=== PATIENT | female | born 2005 | race Caucasian/White ===

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

== ENCOUNTER → 2023-05-14 | Outpatient (REF) | payer OTHER | LOC: M LAB REF 19:45 | PROVIDERS: ATTEND Student in an Organized Health Care Education/Training Program | DX: R30.0 Dysuria (principal) ==

== ENCOUNTER → 2023-09-22 | Outpatient (REF) | payer OTHER ==
[2023-09-22 21:52] LABS: Trichomonas vaginalis (AMP) NOT DETECTED (NEGATIVE)
[2023-09-22 22:15] LABS: GC DNA AMPLIFICATION NEGATIVE (NEGATIVE)
== END ==
LOC: M LAB REF 20:16
PROVIDERS: ATTEND Physician Assistant
DX: R30.0 Dysuria (principal)

== ENCOUNTER → 2023-11-11 | Outpatient (REF) | payer OTHER ==
[~2023-11-11] MED LIST changes: +FLUO-365 PO; -FLUO20CA22 PO
[2023-11-11 21:44] LABS: APPEARANCE, URINE HAZY (CLEAR); BACTERIA, URINE AUTO 1+ (NEGATIVE); BILIRUBIN, URINE AUTO NEGATIVE (NEGATIVE); BLOOD, URINE BLOOD 1+ (NEGATIVE); COLOR, URINE YELLOW (YELLOW); GLUCOSE, URINE (UA) AUTO NEGATIVE (NEGATIVE); KETONE, URINE AUTO NEGATIVE (NEGATIVE); LEUKOCYTE ESTERASE, URINE AUTO 1+ (NEGATIVE); MUCUS, URINE SMALL (NEGATIVE); NITRITE, URINE AUTO NEGATIVE (NEGATIVE); PROTEIN, URINE AUTO 1+ mg/dL (NEGATIVE); RBC, URINE AUTO 5 /HPF (0-3); RENAL EPITHELIAL CELLS 1 /HPF; SQUAMOUS EPITHELIAL CELL UR AU 1 /HPF (0-6); UROBILINOGEN, URINE AUTO 0.2 mg/dL (0.0-2.0); WBC, URINE AUTO 52 /HPF (0-3)
== END ==
LOC: M LAB REF 20:50
PROVIDERS: ATTEND Physician Assistant
DX: N39.0 Urinary tract infection, site not specified (principal)

== ENCOUNTER 2023-11-23 01:51 | Inpatient (IN) | payer OTHER ==
[~2023-11-23] VITALS: Ht 170.2 cm; Wt 76.2 kg
[2023-11-23 02:25] LABS: HEMATOCRIT 38.2 % (36.0-47.0); HEMOGLOBIN 12.5 g/dl (12.0-15.5); MEAN CORPUSCULAR HEMOGLOBIN 26.8 pg (27.0-33.0); MEAN CORPUSCULAR HGB CONC 32.7 g/dl (32.0-36.5); PLATELET COUNT, AUTOMATED 254 10^3/uL (150-450); RED BLOOD COUNT 4.66 10^6/uL (4.00-5.40); WHITE BLOOD COUNT 9.2 10^3/uL (4.0-10.0)
[2023-11-23 02:50] LABS: ALBUMIN 4.4 G/DL (3.2-5.2); ALKALINE PHOSPHATASE 51 U/L (46-116); ALT/SGPT 22 U/L (7.0-40); AST/SGOT < 8 U/L (<34); BILIRUBIN,DIRECT 0.1 MG/DL (<0.4); BILIRUBIN,TOTAL 0.4 MG/DL (0.3-1.2); BLOOD UREA NITROGEN 15 MG/DL (9-23); CALCIUM LEVEL 9.3 MG/DL (8.5-10.1); CARBON DIOXIDE LEVEL 24 MMOL/L (20-31); CHLORIDE LEVEL 108 MMOL/L (98-107); CREATININE FOR GFR 0.65 MG/DL (0.55-1.30); GLUCOSE, FASTING 115 MG/DL (60-100); POTASSIUM SERUM 3.6 MMOL/L (3.5-5.1); SALICYLATE LEVEL < 3.0 MG/DL (<30); SODIUM LEVEL 138 MMOL/L (136-145); TOTAL PROTEIN 7.6 G/DL (5.7-8.2)
[2023-11-23 02:52] LABS: THYROID STIMULATING HORMONE 0.694 uIU/ML (0.48-4.17)
[2023-11-23 02:57] LABS: AMPHETAMINES LEVEL URINE NEGATIVE (NEGATIVE); BARBITURATES URINE NEGATIVE (NEGATIVE); BENZODIAZEPINES URINE NEGATIVE (NEGATIVE); CANNABINOIDS URINE NEGATIVE (NEGATIVE); COCAINE METABOLITE URINE NEGATIVE (NEGATIVE); METHADONE URINE NEGATIVE (NEGATIVE); OPIATES URINE NEGATIVE (NEGATIVE); PHENCYCLIDINE URINE NEGATIVE (NEGATIVE)
[2023-11-23 02:58] LABS: ETHYL ALCOHOL (ETHANOL) < 0.003 % (0.000-0.010)
[2023-11-23 03:26] LABS: HCG, SERUM QUALITATIVE NEGATIVE (NEGATIVE)
[2023-11-23] MEDS ORDERED: HOME MED LIST COMPLETE! XX SCH (05:15)
[2023-11-23] MEDS ORDERED: ACETAMINOPHEN TAB 650MG DOSE (2X325MG) PO PRN (22:05)
[2023-11-23] MEDS ORDERED: MAALOX 30 ML SUSP *UDC PO PRN (22:05)
[2023-11-23] MEDS ORDERED: IBUPROFEN 400MG TAB PO PRN (22:05)
[2023-11-23] MEDS: traZODone 50 MG TAB PO PRN (23:40)
[2023-11-23 23:49] VITALS: BP 118/67; TEMP 97.4; O2SAT 98
[2023-11-24 06:13] VITALS: BP 105/58; TEMP 98; O2SAT 96
[2023-11-24] MEDS: diphenhydrAMINE 25MG CAP PO PRN (09:08)
[2023-11-24 18:29] VITALS: BP 120/70; TEMP 97.7
[2023-11-24] MEDS: traZODone 25MG PER 1/2 TABLET PO PRN (20:20)
[2023-11-25] MEDS ORDERED: LORazepam 2 MG TAB PO PRN (05:25)
[2023-11-25] MEDS: THIAMINE 100 MG TAB PO SCH (06:00)
[2023-11-25 06:28] VITALS: BP 118/59; TEMP 98.4; O2SAT 97
[2023-11-25 06:29] VITALS: BP 118/59
[2023-11-25 06:51] LABS: CHOLESTEROL RISK RATIO 3.46 (<5); LDL CHOLESTEROL 79.6 MG/DL (<100)
[2023-11-25] MEDS: FOLIC ACID 1MG TAB PO SCH (08:49)
[2023-11-25] MEDS: MULTIVITAMINS/MINERALS THERAP 1 TAB PO SCH (08:49)
[2023-11-25 14:49] VITALS: BP 116/67
[2023-11-25] MEDS: MOM 30ML SUSPENSION UDC PO PRN (14:51)
[2023-11-25 14:52] VITALS: BP 116/67; TEMP 98.7
[2023-11-25 17:53] VITALS: BP 117/59; TEMP 98.7
[2023-11-26 06:37] VITALS: BP 112/58; TEMP 98.9; O2SAT 100
[2023-11-26 06:47] VITALS: BP 112/58
[2023-11-26] MEDS ORDERED: THIA100TA PO (07:57)
[2023-11-26] MEDS ORDERED: HYDR-3363 PO (07:57)
[2023-11-26] MEDS ORDERED: ABIL1TAB11 PO (07:57)
[2023-11-26] MEDS ORDERED: Multivitamins PO (07:57)
[2023-11-26] MEDS ORDERED: TRAZ-252 PO (07:57)
== END 2023-11-26 11:46 | disposition home or self-care (01) | DRG 885 ==
LOC: M ED 01:51 → M ED INP 22:04 → M PSY 23:12
PROVIDERS: ADMIT Student in an Organized Health Care Education/Training Program; ATTEND Student in an Organized Health Care Education/Training Program
DX: F39 Unspecified mood [affective] disorder (principal); R45.851 Suicidal ideations; Z81.8 Family history of other mental and behavioral disorders; Z81.1 Family history of alcohol abuse and dependence; Z81.3 Family history of other psychoactive substance abuse and dependence; Z88.0 Allergy status to penicillin

== ENCOUNTER → 2023-12-11 | Outpatient (REF) | payer OTHER ==
[~2023-12-11] MED LIST changes: +ABIL1TAB11 PO; +Multivitamins PO; +THIA100TA PO; +TRAZ-252 PO
== END ==
LOC: M LAB REF 16:08
PROVIDERS: ATTEND Nurse Practitioner Family
DX: R30.0 Dysuria (principal)

== ENCOUNTER 2025-03-09 15:04 | Emergency (ER) | payer MEDICAID, OTHER, SELFPAY ==
[~2025-03-09] VITALS: Ht 170.2 cm; Wt 87.2 kg
[~2025-03-09 15:04] MED LIST changes: -PROZ20CA11 PO; +PROZ20CA25 PO
[2025-03-09] MEDS ORDERED: PNV1TABL16 PO (15:17)
[2025-03-09 15:42] LABS: BASO # 0.1 10^3/uL (0.0-0.2); BASO % 0.5 % (0.0-1.0); EOS # 0.0 10^3/uL (0.0-0.5); EOS % 0.3 % (0.0-3.0); LYMPH # 2.5 10^3/uL (1.5-5.0); LYMPH % 24.4 % (24.0-44.0); MONO # 0.7 10^3/uL (0.0-0.8); MONO % 6.9 % (2.0-8.0); NEUTROPHILS # 7.0 10^3/uL (1.5-8.5); NEUTROPHILS % 67.6 % (36.0-66.0); PLATELET COUNT, AUTOMATED 288 10^3/uL (150-450)
[2025-03-09 16:10] VITALS: TEMP 98
[2025-03-09 16:13] LABS: CALCIUM LEVEL 9.7 MG/DL (8.5-10.1); CARBON DIOXIDE LEVEL 24 MMOL/L (20-31); CHLORIDE LEVEL 102 MMOL/L (98-107); CREATININE FOR GFR 0.54 MG/DL (0.55-1.30); GLOMERULAR FILTRATION RATE > 90.0 (>60); POTASSIUM SERUM 4.2 MMOL/L (3.5-5.1); SODIUM LEVEL 138 MMOL/L (136-145)
[2025-03-09 16:41] LABS: HCG, SERUM QUANTITATIVE 126159.5 MIU/ML (<4.2)
[2025-03-09 17:05] VITALS: BP 140/66; O2SAT 99
[2025-03-09] MEDS: ACETAMINOPHEN 325 MG TAB PO ONE (17:05)
[2025-03-09] MEDS: RHOGAM 300MCG (1500IU) INJ IM ONE (17:37)
== END 2025-03-09 17:43 | disposition home or self-care (01) ==
LOC: M ED 15:04
DX: O20.0 Threatened abortion (principal); Z3A.09 9 weeks gestation of pregnancy; Z88.0 Allergy status to penicillin; Z91.040 Latex allergy status
CPT/HCPCS: 76801; 76817; 80048; 84702; 85025; 86850; 86900; 86901; 96372; 99283; J2790